=== PATIENT | male | born 1940 ===

== ENCOUNTER 2018-08-28 14:51 | Inpatient (IN) | payer OTHER ==
[~2018-08-28] VITALS: Ht 177.8 cm; Wt 90.7 kg
[2018-08-28] MEDS ORDERED: LOSARTAN-HCTZ1 EACH PO (15:26)
[2018-08-28] MEDS ORDERED: LIPITOR20 MG PO (15:26)
[2018-08-28] MEDS ORDERED: FORTAMET1000 MG PO (15:27)
[2018-08-28] MEDS ORDERED: ZETIA10 MG PO (15:27)
[2018-08-28] MEDS ORDERED: TAMS0.4C PO (15:28)
[2018-09-08] MEDS ORDERED: OMEPRAZOLE20 MG PO ×2 (10:52)
[2018-09-08] MEDS ORDERED: INTESTINEX680 M1 PO ×2 (10:52)
[2018-09-08] MEDS ORDERED: CIPRO500 MG PO ×2 (10:52)
[2018-09-08] MEDS ORDERED: PERCOCET 5-3251 EACH PO ×2 (10:52)
[2018-09-08] MEDS ORDERED: INTEGRA F CAPS1 EACH PO ×2 (10:53)
== END 2018-09-08 11:47 | disposition home or self-care (01) | DRG 331 ==
LOC: EDUNIT# 08-30 14:45 → SURH 09-04 05:35 → SURG 09-04 05:35 → O/R 09-04 05:35 → SURG 09-04 14:45 → SURH 09-04 21:55 → SURG 09-04 23:30
PROVIDERS: Colon & Rectal Surgery
PROC: 0DTP4ZZ Resection of Rectum, Percutaneous Endoscopic Approach (ICD-10-PCS; 2018-09-04)
PROC: 07TC4ZZ Resection of Pelvis Lymphatic, Percutaneous Endoscopic Approach (ICD-10-PCS; 2018-09-04)
PROC: 0DTU4ZZ Resection of Omentum, Percutaneous Endoscopic Approach (ICD-10-PCS; 2018-09-04)
PROC: 0DJD8ZZ Inspection of Lower Intestinal Tract, Via Natural or Artificial Opening Endoscopic (ICD-10-PCS; 2018-09-04)
PROC: 0DTM4ZZ Resection of Descending Colon, Percutaneous Endoscopic Approach (ICD-10-PCS; principal; 2018-09-04 23:30)
DX: C18.6 Malignant neoplasm of descending colon (principal); I11.9 Hypertensive heart disease without heart failure; E11.9 Type 2 diabetes mellitus without complications; N40.0 Benign prostatic hyperplasia without lower urinary tract symptoms; E78.00 Pure hypercholesterolemia, unspecified; D50.8 Other iron deficiency anemias; Z88.0 Allergy status to penicillin

== ENCOUNTER 2018-09-03 11:42 | Day surgery (SDC) | payer OTHER ==
[~2018-09-03 11:42] MED LIST: FORTAMET1000 MG PO; LIPITOR20 MG PO; LOSARTAN-HCTZ1 EACH PO; TAMS0.4C PO; ZETIA10 MG PO
== END 2018-09-03 18:30 | disposition home or self-care (01) ==
LOC: AMB-ENDOS 11:42
DX: C18.6 Malignant neoplasm of descending colon (principal); K92.1 Melena

== ENCOUNTER → 2019-03-07 | Day surgery (SDC) | payer OTHER ==
[~2019-03-07] MED LIST changes: +CIPRO500 MG PO; +INTEGRA F CAPS1 EACH PO; +INTESTINEX680 M1 PO; +OMEPRAZOLE20 MG PO; +PERCOCET 5-3251 EACH PO
== END | disposition home or self-care (01) ==
LOC: AMB-ENDOS 05:33
DX: K92.1 Melena (principal); K64.1 Second degree hemorrhoids; Z85.038 Personal history of other malignant neoplasm of large intestine; Z08 Encounter for follow-up examination after completed treatment for malignant neoplasm

== ENCOUNTER 2019-04-30 05:40 | Day surgery (SDC) | payer OTHER | END 2019-04-30 12:35 | disposition home or self-care (01) | LOC: CIR.AMB 05:40 | DX: C18.6 Malignant neoplasm of descending colon (principal) | CPT/HCPCS: 36561; C1751 ==